=== PATIENT | female | born 1980 | race Caucasian/White ===

== ENCOUNTER 2017-01-10 15:57 | Emergency (ER) | payer OTHER ==
[2017-01-10 16:11] VITALS: BP 139/81; PULSE 88; RESP 20; TEMP 99.9
[2017-01-10] MEDS ORDERED: SULFAMETHOX-TMP 800-160MG 1 EACH TAB PO STA (16:52)
[2017-01-10] MEDS ORDERED: IBUPROFEN 600 MG STARTER PACK 4 TAB BTL PO STA (16:52)
--- NOTE | 2017-01-10 16:58 | ED ---
General Adult HPI - General Chief complaint: ENT Stated complaint: Infection of nose/eyes Time Seen by Provider: 01/10/17 16:29 Source: patient, RN notes reviewed Mode of arrival: ambulatory Limitations: no limitations - History of Present Illness Initial comments: Patient 36-year-old female who presents emergency room today with a chief complaint of an abscess located over the nasal bridge. Patient does admit that it started as a small pimple 4 days ago. She does admit that she tried to pop it. She states, larger in size. She states is not a lot of drainage. Patient states she's not currently on any antibiotic. She does admit that she's noticed some swelling to the lower aspect of her eyes bilaterally. Patient denies any other complaints or associated symptoms. Patient denies any recent fever, chills, shortness of breath, chest pain, back pain, abdominal pain, nausea or vomiting, numbness or tingling, dysuria or hematuria, constipation or diarrhea, headaches or visual changes, or any other complaints. - Related Data Previous Rx's Medication Instructions Recorded Ibuprofen [Motrin] 600 mg PO Q6HR PRN #20 day 01/10/17 Sulfamethox-Tmp 800-160Mg [Bactrim 2 tab PO Q12HR #40 tab 01/10/17 DS 800-160 mg] Allergies Allergy/AdvReac Type Severity Reaction Status Date / Time Antihistamines - Ethanolamine AdvReac Nausea & Verified 01/10/17 17:01 Vomiting Review of Systems ROS Statement: Those systems with pertinent positive or pertinent negative responses have been documented in the HPI. ROS Other: All systems not noted in ROS Statement are negative. Past Medical History Past Medical History: No Reported History History of Any Multi-Drug Resistant Organisms: MRSA Past Surgical History: No Surgical Hx Reported Past Psychological History: No Psychological Hx Reported Smoking Status: Current every day smoker Past Alcohol Use History: Occasional Past Drug Use History: None Reported General Exam - General Exam Comments Initial Comments: General: The patient is awake and alert, in no distress, and does not appear acutely ill. Eye: Pupils are equal, round and reactive to light, extra-ocular movements are intact. No nystagmus. There is normal conjunctiva bilaterally. No signs of icterus. Ears, nose, mouth and throat: There are moist mucous membranes and no oral lesions. Neck: The neck is supple, there is no tenderness or JVD. Cardiovascular: There is a regular rate and rhythm. No murmur, rub or gallop is appreciated. Respiratory: Lungs are clear to auscultation, respirations are non-labored, breath sounds are equal. No wheezes, stridor, rales, or rhonchi. Musculoskeletal: Normal ROM, no tenderness. Strength 5/5. Sensation intact. Pulses equal bilaterally 2+. Neurological: A&O x 3. CN II-XII intact, There are no obvious motor or sensory deficits. Coordination appears grossly intact. Speech is normal. Skin: Patient does have moderate size abscess located to the left side of the nasal bridge. There is a yellow purulent type drainage and skin breakdown with ulceration. Psychiatric: Cooperative, appropriate mood & affect, normal judgment. Limitations: no limitations Course Vital Signs 01/10/17 16:09 Temperature 99.9 F H Pulse Rate 88 Respiratory 20 Rate Blood Pressure 139/81 O2 Sat by Pulse 99 Oximetry Procedures - Procedures Initial comment: 18-gauge needle was used to make small incision. Small amount of purulent drainage was removed. Medical Decision Making - Medical Decision Making She is advised to continue with warm compresses and use topical antibiotics along with oral antibiotic. Advised to return to emergency room symptoms increase or worsen or for any other concerns. Patient states understanding and is in agreement. Disposition Clinical Impression: Abscess Disposition: HOME SELF-CARE Condition: Good Instructions: Abscess (ED) Additional Instructions: Please use topical and oral antibiotics as prescribed. Please continue warm compresses to the affected area at least 4 times daily for 15-20 minutes at a time. Please return to emergency room symptoms increase or worsen or for any other concerns as discussed. Prescriptions: Ibuprofen [Motrin] 600 mg PO Q6HR PRN #20 day PRN Reason: Pain Sulfamethox-Tmp 800-160Mg [Bactrim DS 800-160 mg] 2 tab PO Q12HR #40 tab Referrals: None,Stated [Primary Care Provider] - 1-2 days Moris Elias MD [STAFF PHYSICIAN] - 1-2 days Time of Disposition: 16:57
[2017-01-10] MEDS ORDERED: SULFAMETH-TMP DS STARTER PACK 2 TAB BTL PO STA (17:05)
== END 2017-01-10 17:12 | disposition home or self-care (01) ==
LOC: EC 15:57
DX: J34.0 Abscess, furuncle and carbuncle of nose (principal); F17.200 Nicotine dependence, unspecified, uncomplicated; Z86.14 Personal history of Methicillin resistant Staphylococcus aureus infection; Z88.8 Allergy status to other drugs, medicaments and biological substances
CPT/HCPCS: 10060; 99282

== ENCOUNTER 2017-02-14 21:39 | Emergency (ER) | payer OTHER ==
[2017-02-14 21:46] VITALS: TEMP 98
[2017-02-14] MEDS ORDERED: ACETAMINOPHEN TAB 325 MG TAB PO STA (22:20)
[2017-02-14] MEDS ORDERED: IBUPROFEN 400 MG TAB PO STA (22:20)
--- NOTE | 2017-02-14 22:29 | ED ---
Overdose HPI - General Chief Complaint: Overdose Stated Complaint: overdose Time Seen by Provider: 02/14/17 21:45 Source: patient, EMS Mode of arrival: EMS Limitations: no limitations - History of Present Illness Initial Comments: This patient is a 36-year-old woman who presents after axonal heroin overdose. The patient states that she had used tonight and then the next thing she remembers is waking up with EMS there who had given her Narcan. Patient believes her roommate must have called EMS. Patient states that she feels her usual self other than the fact that she has a bit of a frontal headache, which she classifies as moderate, not worst headache of life. MD Complaint: accidental overdose -: minutes(s) How Overdose Was Discovered: family/friend present at time Context: Accidental Overdose: wanted to get high Treatments Prior to Arrival: narcan - Related Data Home Medications Medication Instructions Recorded Confirmed No Known Home Medications [No 02/14/17 02/14/17 Known Home Medications] Allergies Allergy/AdvReac Type Severity Reaction Status Date / Time Antihistamines - Ethanolamine AdvReac Nausea & Verified 02/14/17 21:58 Vomiting Review of Systems ROS Statement: Those systems with pertinent positive or pertinent negative responses have been documented in the HPI. ROS Other: All systems not noted in ROS Statement are negative. Constitutional: Denies: fever, chills Respiratory: Denies: cough, dyspnea Cardiovascular: Denies: chest pain, palpitations Gastrointestinal: Denies: abdominal pain Musculoskeletal: Denies: back pain Skin: Denies: rash, lesions Neurological: Reports: headache. Denies: weakness, numbness, confusion Psychiatric: Denies: depression, suicidal thoughts Past Medical History Past Medical History: No Reported History History of Any Multi-Drug Resistant Organisms: MRSA Past Surgical History: No Surgical Hx Reported Past Psychological History: Anxiety Smoking Status: Current every day smoker Past Alcohol Use History: Occasional Past Drug Use History: Heroin, Marijuana General Exam Limitations: no limitations General appearance: alert, in no apparent distress Head exam: Present: atraumatic Eye exam: Present: normal appearance, PERRL, EOMI. Absent: scleral icterus, conjunctival injection Respiratory exam: Present: normal lung sounds bilaterally. Absent: respiratory distress, wheezes, rales, rhonchi, stridor Cardiovascular Exam: Present: regular rate, normal rhythm, normal heart sounds. Absent: systolic murmur, diastolic murmur, rubs, gallop GI/Abdominal exam: Present: soft. Absent: distended, tenderness, guarding, rebound, mass Extremities exam: Present: normal inspection, normal capillary refill. Absent: pedal edema, calf tenderness Back exam: Present: normal inspection. Absent: CVA tenderness (R), CVA tenderness (L) Neurological exam: Present: alert Psychiatric exam: Present: normal affect. Absent: suicidal ideation Skin exam: Present: warm, dry, intact, normal color. Absent: rash Course Vital Signs 02/14/17 21:40 Temperature 98.0 F Pulse Rate 77 Respiratory 18 Rate Blood Pressure 145/83 O2 Sat by Pulse 100 Oximetry Medical Decision Making - EKG Data -: EKG Interpreted by Me EKG shows normal: sinus rhythm, axis (Normal), intervals (Normal), QRS complexes (Normal), ST-T waves (Normal) Rate: normal (Rate 78 bpm) Interpretation: normal EKG Disposition Clinical Impression: Poisoning by opiate or related narcotic Disposition: HOME SELF-CARE Condition: Good Referrals: None,Stated [Primary Care Provider] - 1-2 days
[2017-02-15 00:24] VITALS: BP 138/90; PULSE 68; RESP 16
== END 2017-02-15 00:35 | disposition left against medical advice (07) ==
LOC: EC 21:39
DX: T40.601A Poisoning by unspecified narcotics, accidental (unintentional), initial encounter (principal); F17.200 Nicotine dependence, unspecified, uncomplicated; Z88.8 Allergy status to other drugs, medicaments and biological substances; Z53.29 Procedure and treatment not carried out because of patient's decision for other reasons
CPT/HCPCS: 93005; 99284

== ENCOUNTER 2017-12-17 15:32 | Emergency (ER) | payer OTHER ==
[2017-12-17] MEDS ORDERED: SULFAMETHOX-TMP 800-160MG 1 EACH TAB PO STA (17:07)
--- NOTE | 2017-12-17 17:34 | ED ---
General Adult HPI - General Chief complaint: Extremity Injury, Lower Stated complaint: left great toe infection Time Seen by Provider: 12/17/17 15:47 Source: patient, RN notes reviewed Mode of arrival: ambulatory Limitations: no limitations - History of Present Illness Initial comments: 37-year-old female presents to the emergency department for a chief complaint of ingrown toenail 2 weeks. Patient states she tried to cut the corner of it off and thought she got it all but continued to remain infected. Patient states it is painful. He shouldn't states she's been trying to clean it with alcohol to get rid of the infection but that it has not worked. Patient denies any injury to the toe. Patient denies any fevers or chills at home. Patient denies any drainage from the nail. Patient denies any spreading redness or streaking redness up the leg. Patient has no other complaints at this time including shortness of breath, chest pain, abdominal pain, nausea or vomiting, headache, or visual changes. - Related Data Previous Rx's Medication Instructions Recorded Sulfamethox-Tmp 800-160Mg [Bactrim 2 tab PO Q12HR #40 tab 12/17/17 DS 800-160 mg] Allergies Allergy/AdvReac Type Severity Reaction Status Date / Time Antihistamines - Ethanolamine AdvReac Nausea & Verified 12/17/17 16:08 Vomiting Review of Systems ROS Statement: Those systems with pertinent positive or pertinent negative responses have been documented in the HPI. ROS Other: All systems not noted in ROS Statement are negative. Past Medical History Past Medical History: No Reported History History of Any Multi-Drug Resistant Organisms: MRSA Past Surgical History: No Surgical Hx Reported Past Psychological History: Anxiety Smoking Status: Current every day smoker Past Alcohol Use History: Occasional Past Drug Use History: Heroin, Marijuana General Exam Limitations: no limitations General appearance: alert, in no apparent distress Head exam: Present: atraumatic, normocephalic, normal inspection Eye exam: Present: normal appearance ENT exam: Present: normal exam, mucous membranes moist Neck exam: Present: normal inspection, full ROM. Absent: tenderness, meningismus, lymphadenopathy Respiratory exam: Present: normal lung sounds bilaterally. Absent: respiratory distress, wheezes, rales, rhonchi, stridor Cardiovascular Exam: Present: regular rate, normal rhythm, normal heart sounds. Absent: systolic murmur, diastolic murmur, rubs, gallop, clicks Extremities exam: Present: full ROM (Full range of motion of left big toe), tenderness (Tenderness to left big toe. No tenderness elsewhere in the left foot.), normal capillary refill (Refill less than 2 seconds in the left foot. Pedal pulse 2+.), joint swelling (Patient does have some mild swelling and redness along the medial aspect of the left great toe.), other (Onychocryptosis of the medial edge of left great toe. There is local erythema and signs of local infection. No spreading redness or streaking redness up the toe or extremity. No redness or tenderness of the tendons in the great toe.) Course Vital Signs 12/17/17 12/17/17 15:48 17:39 Temperature 97.0 F L 97.1 F L Pulse Rate 94 91 Respiratory 18 17 Rate Blood Pressure 115/57 118/62 O2 Sat by Pulse 96 96 Oximetry Medical Decision Making - Medical Decision Making 37-year-old female presents to the emergency department for a chief complaint of left ingrown toenail of the great toe. It has been for 2 weeks. No fevers or chills at home. No spreading or streaking redness up the toe. On exam patient appears to have onychocryptosis of the medial edge of the nail fold. Patient is able to move the toe and neurovascularly intact. Toe was cleaned with alcohol and iodine. Toe was numbed with 3 mL of 1% lidocaine used and a digital block. The medial aspect of the toenail was removed without complications. I attempted to incise and drain the redness in the side of the toe but no purulent drainage was expelled. Patient will be put on Bactrim. She was given a dose in the emergency department. She was educated on return precautions such as spreading redness or streaking redness up the foot. She will take Motrin and Tylenol for pain. She will follow up with primary care in 1-2 days. Disposition Clinical Impression: Ingrown left big toenail Disposition: HOME SELF-CARE Condition: Good Instructions: Ingrown Nail (ED) Additional Instructions: Please take Motrin and Tylenol for pain. Please take Bactrim as directed. Watch for worsening signs of infection such as spreading redness, streaking redness, or fever and return if these or any other worsening symptoms occur. Otherwise follow-up with primary care in 1-2 days. Prescriptions: Sulfamethox-Tmp 800-160Mg [Bactrim DS 800-160 mg] 2 tab PO Q12HR #40 tab Is patient prescribed a controlled substance at d/c from ED?: No Referrals: Yovani Han MD [STAFF PHYSICIAN] - 1-2 days Time of Disposition: 17:33
[2017-12-17 17:40] VITALS: BP 118/62; PULSE 91; RESP 17; TEMP 97.1
== END 2017-12-17 17:39 | disposition home or self-care (01) ==
LOC: EC 15:32
DX: L60.0 Ingrowing nail (principal); F17.200 Nicotine dependence, unspecified, uncomplicated; Z86.14 Personal history of Methicillin resistant Staphylococcus aureus infection; Z88.8 Allergy status to other drugs, medicaments and biological substances
CPT/HCPCS: 11750; 99283